=== PATIENT | male | born 1990 | race Two or more races ===

== ENCOUNTER 2025-03-21 23:16 | Emergency (ER) | payer SELFPAY ==
[~2025-03-21] VITALS: Ht 175.3 cm; Wt 74.8 kg
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
[2025-03-21 23:43] VITALS: BP 0/0; PULSE 0; RESP 0; TEMP 100.4; O2SAT 0
--- NOTE | 2025-03-22 00:17 | RESUS ---
CODE BLUE ASSESSSMENT History of Events History of Events: 34-year-old male who came to ER via EMS in cardiac arrest. Per EMS patient picked up at home, and had a witnessed cardiac arrest by family members. Per family, patient just got home from work, was having a panic attack, became short of breath, tried dousing himself with a water, and he became unresponsive. Paramedics came, patient is still unresponsive, asystole, CPR initiated, IO inserted at both legs, fluids given. 2 mg of Narcan and 6 epinephrine was given while en route. Patient remained asystole. Total downtime was 32 minutes. Down time 2235 hours. CPR started 2239 hours. Initial Information Date: Mar 21, 2025 Time: 22:25 Location of Arrest: In Field Arrest Witnessed: Yes CPR started initial time: 22:39 CPR started by whom: EMS Last seen well: PRIOR TO ARREST Pre-Hospital Care: ACLS Type of arrest: Cardiac, Respiratory, Adult, Witnessed Spontaneous Respirations: No Pulse Present: No Monitoring: ECG, Pulse Oximetry, Apnea, Telemetry Crash Cart Opened and Supplies: Yes Airway Ventilation Breathing at Onset: Apneic Oxygen Delivery Method: Ambu-Bag Oxygen 100% Time of first Assisted Ventila: 23:18 Intubation Time: 23:18 Intubation Size: 8.0 cuffed Intubated by: DR [place] Intubation Attempts: 1 Intubated orally: Yes Intubated Nasaly: No Tube secured at: 26 Cricoid pressure done: No CO2 indicator used: Yes Confirmation: Auscultation, Exhaled CO2 Suctioning (Oral/Tracheal): No Circulation Circulation : Time: 22:16 Pulse Rate (adult): 0 Blood Pressure Systolic: 0 Blood Pressure Diastolic: 0 Temperature (Fahrenheit): 100.4 Procedure - IV Procedure - IV : IV start time: 23:26 IV Side: Left IV Location: Wrist IV Catheter Type: Saline Lock IV Placed: In Hospital IV Placed by SOURAV UNGER IV Gauge: 20 IV Line Care: Saline Flush Procedure - Intraosseous Site of Intraosseous: Tibia jasper-medial Intraosseous inserted by: EMS Medications & Response Medications and Responses #1: Medication Time: 23:17 ADULT Medications Given ADULT: Narcan 1 mg (4MG) Route of Administration: IO Heart Rate: 0 EKG Rhythm: Asystole Blood Pressure Systolic: 0 Blood Pressure Diastolic: 0 Respiratory Rate: 0 O2 Sat by Pulse Oximetry: 0 Defib. Joules: 0 EKG Rhythm: Asystole Comment 2320 NO PULSE Medications and Responses #2: Medication Time: 23:20 ADULT Medications Given ADULT: Epinephrine 1 mg Route of Administration: IO Heart Rate: 0 Blood Pressure Systolic: 0 Blood Pressure Diastolic: 0 Respiratory Rate: 0 O2 Sat by Pulse Oximetry: 0 EKG Rhythm: Asystole Comment 2323 NO PULSE Medications and Responses #3: Medication Time: 23:23 ADULT Medications Given ADULT: Epinephrine 1 mg Route of Administration: IO Heart Rate: 0 EKG Rhythm: Asystole Blood Pressure Systolic: 0 Blood Pressure Diastolic: 0 Respiratory Rate: 0 O2 Sat by Pulse Oximetry: 0 EKG Rhythm: Asystole Comment 2326 NO PULSE Medications and Responses #4: Medication Time: 23:26 ADULT Medications Given ADULT: Epinephrine 1 mg Route of Administration: IV Heart Rate: 0 EKG Rhythm: Asystole Blood Pressure Systolic: 0 Blood Pressure Diastolic: 0 Respiratory Rate: 0 O2 Sat by Pulse Oximetry: 0 EKG Rhythm: Asystole Comment 2329 NO PULSE Medications and Responses #5: Medication Time: 23:29 ADULT Medications Given ADULT: Epinephrine 1 mg Route of Administration: IV Heart Rate: 0 EKG Rhythm: Asystole Blood Pressure Systolic: 0 Blood Pressure Diastolic: 0 Respiratory Rate: 0 O2 Sat by Pulse Oximetry: 0 EKG Rhythm: Asystole Comment 2332 NO PULSE PT PRONOUNCED Pacing Pacer Pads Applied and Pacing: Yes Procedure - Vo Catheter Urinary Catheter Type/Location: Straight Urinary Catheter Size: 16 Urine Color: Yellow Vo Catheter Secured: No Vo Catheter Inserted by Who: LYNDA Comment: REMOVED URINE SENT Nurses Notes Camron Coma Scale Eye Opening: None (1) [place] Coma Scale Verbal: None (1) [place] Coma Scale Motor: None (1) Glascow Total: 3 Pupil Reaction: Non Reactive Bedside Blood Glucose: 167 EKG Rhythm: Asystole Time Code Ended Time Code Ended: 23:32 Post Arrest Status: Outcome of code: Unsuccessful Patient pronounced by: DR [place] Time patient pronounced: 23:32 Family notified: Yes Attending called: Yes Post Resuscitation Neurologica Pupil Size: 4 Comment: TANNER GUAN Mar 22, 2025 00:17
[2025-03-22 00:26] LABS: Hematocrit 32.8 % (41.0-53.0); Hemoglobin 8.9 g/dL (13.5-17.5)
[2025-03-22 00:28] LABS: Mean Corpuscular Hemoglobin 31.7 pg (28.0-32.0); Mean Corpuscular Volume 116.3 fL (80.0-100.0)
[2025-03-22 00:37] LABS: Albumin 4.3 g/dL (3.2-4.8); Alkaline Phosphatase 84 U/L (46-116); Anion Gap 29.00001 (5-15); BUN/Creatinine Ratio 5.2 (10.0-20.0); Bilirubin, Total 0.3 mg/dL (0.2-1.0); Blood Urea Nitrogen 10 mg/dL (9-23); Total Protein 7.3 g/dL (5.7-8.2)
[2025-03-22 00:54] LABS: Chloride 113 mmol/L (98-107); Sodium 152 mmol/L (136-145)
[2025-03-22 00:55] LABS: Alanine Aminotransferase 697 U/L (7-40); Calcium 11.4 mg/dL (8.7-10.4); Creatine Kinase IFCC 235 U/L (46-171); Glucose 191 mg/dL (74-106)
[2025-03-22 00:58] LABS: Potassium 6.1 mmol/L (3.5-5.1)
[2025-03-22 00:59] LABS: Carbon Dioxide < 10 mmol/L (20-31)
[2025-03-22 01:08] LABS: Benzodiazephine Screen, Urine Pos (NEGATIVE); Cannabinoid Screen, Urine Pos (NEGATIVE)
[2025-03-22 01:09] LABS: Amphetamine Screen, Urine Neg (NEGATIVE); Barbiturate Scree,Urine Neg (NEGATIVE); Cocaine Screen, Urine Pos (NEGATIVE); Opiate Scree,Urine Neg (NEGATIVE); Phencyclidine Screen, Urine Neg (NEGATIVE)
[2025-03-22 07:47] LABS: Anisocytosis Slight; Macrocytosis Moderate; Total Cells Counted 100.0 (100)
== END 2025-03-21 23:32 ==
LOC: EDBD 23:16 → ER 23:16
DX: I46.9 Cardiac arrest, cause unspecified (principal); F19.10 Other psychoactive substance abuse, uncomplicated
CPT/HCPCS: 31500; 36415; 80053; 80307; 80320; 82550; 82947; 83880; 84484; 85007; 85027; 92950